=== PATIENT | female | born 1995 | race Two or more races ===

== ENCOUNTER 2016-10-31 10:38 | Emergency (ER) | payer SELFPAY ==
--- NOTE | ~2016-10-31 | ER ---
PATIENT'S NAME: ZANDRA BORRERO [facility] AGE: 21 Y [address] ROOM: [place] [address] LOCATION: ED ADMIT DATE: 10/31/2016 ER/Outpatient Report DISCHARGE DATE: 10/31/2016 FAMILY PHYSICIAN: PHYSICIAN, NO ATTENDING PHYSICIAN: Patrick Buitrago CHIEF COMPLAINT: Dysuria. HISTORY OF PRESENT ILLNESS: The patient states that she was on antibiotics for urinary tract infection over the last several days. She received a 5-day course of Bactrim based on the concerning urine dip from a local clinic. She was unable to get back in and see them today. She finished that medication on the third and has noticed return of her symptoms more prominent today. She denies any fevers, chills, back pain, nausea, vomiting, or diarrhea with this but does have some dysuria and some bladder spasm. PAST MEDICAL HISTORY: Documented on the record and reviewed by me. SOCIAL HISTORY: Documented on the record and reviewed by me. MEDICATIONS: Documented on the record and reviewed by me. ALLERGIES: DOCUMENTED ON THE RECORD AND REVIEWED BY ME. REVIEW OF SYSTEMS: All systems reviewed and negative except as noted in the HPI. PHYSICAL EXAMINATION: VITAL SIGNS: Blood pressure 106/70, pulse is 92, respiratory rate is 18, temperature 98 degrees, SpO2 is 96% on room air. Pain is rated at 2/10. GENERAL: Age-appropriate female. No outward signs of any pain or distress, resting comfortably on exam table. HEENT: Normocephalic, atraumatic. Eyes are PERRL. Oropharynx is clear. NECK: Supple. Trachea is midline. CHEST/HEART: Regular rate and rhythm. No murmurs. LUNGS: Clear to auscultation bilateral. No rhonchi, wheezes, or rales. ABDOMEN: Soft, nontender, and nondistended other than some very mild suprapubic discomfort. BACK: Nontender to palpation throughout. No CVA tenderness. PATIENT'S NAME: ZANDRA BORRERO [facility] AGE: 21 Y [address] ROOM: [place] [address] LOCATION: ED ADMIT DATE: 10/31/2016 ER/Outpatient Report DISCHARGE DATE: 10/31/2016 FAMILY PHYSICIAN: PHYSICIAN, NO ATTENDING PHYSICIAN: Patrick Buitrago EXTREMITIES: Warm and well perfused. SKIN: Warm, dry, and intact. LABORATORY DATA AND X-RAYS: Urinalysis is concerning for likely infection, possibly contaminated specimen, but nitrite positive. Culture is pending. Urine is negative in urine. Gonorrhea and chlamydia are not detected. IMPRESSION: Urinary tract infection with dysuria. EMERGENCY DEPARTMENT COURSE: The patient is seen and evaluated. Based on failure of Bactrim, we will initiate ciprofloxacin and cultures pending. I did try to contact the clinic, they did not do a culture. The patient stated this would be appropriate. She will need to follow up in about a week if not significantly better. We will follow up with culture data as needed. MD ZAYRA LEYVA/anni /[id number] d: 10/31/16 2315 t: 11/11/16 0627, OUTPATIENT REPORT
[2016-10-31 11:03] LABS: BILIRUBIN URINE NEGATIVE (NEGATIVE); BLOOD URINE 10 /UL (NEGATIVE); COLOR URINE YELLOW (YELLOW); GLUCOSE URINE NEGATIVE (NEGATIVE); KETONE URINE NEGATIVE (NEGATIVE); LEUKOCYTES URINE 500 /UL (NEGATIVE); NITRITE URINE POSITIVE (NEGATIVE); PH URINE 6.5 (4.0-8.0); PROTEIN URINE NEGATIVE (NEGATIVE); SPEC GRAVITY URINE 1.015 (1.003-1.035); TURBIDITY URINE 1+ (CLEAR); UROBILINOGEN URINE NORMAL (NORMAL)
[2016-10-31 11:16] LABS: WBC URINE 20-50 #/HPF (NEGATIVE)
[2016-10-31 11:17] LABS: BACTERIA URINE MANY (NEGATIVE); RBC URINE RARE #/HPF (NEGATIVE)
== END 2016-10-31 11:37 | disposition disaster alternative care site (69) ==
LOC: GMED 10:38
PROVIDERS: Emergency Medicine
DX: N39.0 Urinary tract infection, site not specified (principal)

== ENCOUNTER 2017-02-09 03:12 | Emergency (ER) | payer SELFPAY ==
--- NOTE | ~2017-02-09 | ER ---
PATIENT'S NAME: ZANDRA BORRERO [facility] AGE: 21 Y [address] ROOM: [place] [address] LOCATION: ED ADMIT DATE: 02/09/2017 ER/Outpatient Report DISCHARGE DATE: 02/09/2017 FAMILY PHYSICIAN: PHYSICIAN, NO ATTENDING PHYSICIAN: Patrcik Buitrago CHIEF COMPLAINT: Rash. HISTORY OF PRESENT ILLNESS: The patient notes that last night before bed, she felt an unusual itchiness in her skin. She has no new contacts or exposures. She is concerned maybe her lingerie or bedding did not get as clean as it ought to be. In any case, she woke up this morning with an itchy red rash all over her body. She denies any difficulty breathing, fevers, chills, or palpitations. She has not tried anything to make this better. She has not called anybody for this. The known onset was 30 minutes prior to arrival. PAST MEDICAL HISTORY: Documented on the record and reviewed by me. SOCIAL HISTORY: Documented on the record and reviewed by me. MEDICATIONS: Documented on the record and reviewed by me. ALLERGIES: DOCUMENTED ON THE RECORD AND REVIEWED BY ME. REVIEW OF SYSTEMS: All systems were reviewed and negative except as noted in the HPI. PHYSICAL EXAMINATION: VITAL SIGNS: Blood pressure 107/58, pulse 89, respiratory rate 16, temperature 98.1, and SpO2 is 96% on room air. Pain is 0/10. GENERAL: An age-appropriate female, in no obvious pain or distress, upright on the exam chair. NEUROLOGIC: Awake and alert. GCS 15. No focal deficits. No asymmetry. HEENT: Normocephalic and atraumatic. Eyes are PERRL. Oropharynx is clear. NECK: Supple. Trachea is midline. CHEST/HEART: Regular rate and rhythm with no murmurs or rubs. LUNGS: Clear to auscultation bilateral. ABDOMEN: Benign. BACK: Benign. PATIENT'S NAME: ZANDRA BORRERO [facility] AGE: 21 Y [address] ROOM: [place] [address] LOCATION: [facility] ADMIT DATE: 02/09/2017 ER/Outpatient Report DISCHARGE DATE: 02/09/2017 FAMILY PHYSICIAN: PHYSICIAN, NO ATTENDING PHYSICIAN: Patrick Buitrago EXTREMITIES: Benign. SKIN: Notable for a hive-like rash, diffusely, most prominent on the lower extremities, trunk, and upper extremities. Does not involve the face or palms. Not consistent with fungal rash. LABORATORY DATA AND X-RAYS: None. IMPRESSION: Hives. EMERGENCY DEPARTMENT COURSE: The patient is seen and evaluated as above. She is clearly uncomfortable. We will treat her with Benadryl here in the ER. Recommend Benadryl and Medrol Dosepak for symptom management, if not improving on Benadryl. Prescription for Medrol given. The patient is to return immediately with difficulty breathing or nonresolution. Follow up with PCP as needed. MD ZAYRA LEYVA/anni /[id number] d: 02/09/17 1157 t: 02/11/17 1244, OUTPATIENT REPORT
== END 2017-02-09 03:47 | disposition disaster alternative care site (69) ==
LOC: GMED 03:12
DX: L50.9 Urticaria, unspecified (principal)